=== PATIENT | female | born 1985 | race Two or more races ===

== ENCOUNTER → 2019-05-02 | Outpatient (CLI) | payer OTHER ==
--- NOTE | 2019-05-02 20:17 | RADIOLOGY REPORT (SQ) ---
EXAM DESCRIPTION: [facility]: CT ABDOMEN PELVIS WITH IV CONTRAST CLINICAL HISTORY: 34 years Female; (R10.33)PERIUMBILICAL PAIN TECHNIQUE: CT of the abdomen and pelvis using intravenous contrast. All CT scans at this facility use dose modulation, iterative reconstruction, and/or weight based dosing when appropriate to reduce radiation dose to as low as reasonably achievable. COMPARISON: None. FINDINGS: Abdomen: Liver:No focal lesions. No intrahepatic ductal distention. Gallbladder: Surgically absent Pancreas:Within normal limits Spleen:Within normal limits Right kidney:No hydronephrosis. No focal lesion. Left kidney:No hydronephrosis. No focal lesion. Adrenal glands:Within normal limits Vascular structures:Within normal limits Pelvis: Small bowel:No significant distention. Appendix:Within normal limits Colon: Diverticula along the sigmoid colon. No colonic distention or acute pericolonic edema. Oral contrast is seen down to the mid:, With no evidence for obstruction. No free intraperitoneal fluid or air. Bones: No acute bone findings. Bladder: Unremarkable. Uterus is unremarkable. Left adnexa: 4.2 x 3.2 x 3.6 cm low-density structure, likely ovarian cyst. No right adnexal enlargement. IMPRESSION: 1. 4.2 cm low-density left ovarian lesion, likely ovarian cyst. No follow-up imaging is recommended unless there is clinical concern for torsion. 2. Mild colonic diverticulosis but no evidence for acute diverticulitis 3. Previous cholecystectomy. 4. No acute inflammatory changes.
== END ==
LOC: RAD 16:43
PROVIDERS: ATTEND Physician Assistant
DX: K57.30 Diverticulosis of large intestine without perforation or abscess without bleeding (principal); R10.33 Periumbilical pain
CPT/HCPCS: 74177